=== PATIENT | male | born 1950 | race Caucasian/White ===

== ENCOUNTER 2022-05-22 17:25 | Emergency (ER) | payer OTHER, MEDICARE ==
[2022-05-22] VITALS (8 sets, daily range): BP systolic 117–197; BP diastolic 61–151
[~2022-05-22] VITALS: Ht 175.3 cm; Wt 91.0 kg
[2022-05-22 18:23] LABS: BASO% 0.6 % (0-3); EOS% 2.9 % (0-8); IMMATURE GRANULOCYTES 0.2 % (0.0-5.0); LYMPH% 31.5 % (15-41); MEAN CELL VOLUME 91.8 fL CALC (80.0-100.0); MEAN CORPUSCULAR HGB 32.2 pG CALC (26.0-32.0); MEAN CORPUSCULAR HGB CONC 35.1 g/dL CAL (32.0-36.0); MONO% 11.2 % (2-13); NEUT# 5.05 thou/uL (1.82-7.42); NEUT% 53.6 % (42-76); RED BLOOD COUNT 4.5 mill/uL (4.70-6.10)
[2022-05-22 18:28] LABS: HEMATOCRIT 41.3 % (39.0-50.0); HEMOGLOBIN 14.5 g/dl (14.0-18.0)
[2022-05-22 18:41] LABS: ALKALINE PHOSPHATASE 69 u/l (38-126); BILIRUBIN, TOTAL 0.7 mg/dL (0.0-1.4); BUN 8 mg/dL (8-23); BUN/CREATININE RATIO 8 (12-20 (CALC)); CHLORIDE 88 mmol/l (95-108); GFR FOR AFR.AMER. > 60 ML/MIN (>=60 (CALC)); GFR OTHER RACES > 60 ML/MIN (>=60 (CALC)); SGOT/AST 96 u/l (19-48); SODIUM 128 mmol/l (137-146); TOTAL PROTEIN 8.1 g/dL (6.3-8.2)
[2022-05-22 18:42] LABS: ALBUMIN 4.7 g/dL (3.2-5.0); ANION GAP 15 (6-22 (CALC)); CARBON DIOXIDE 29 mmol/l (22-30)
[2022-05-22 18:50] LABS: ETHYL ALCOHOL 215 mg/dl (0-30)
[2022-05-22 19:17] LABS: URINE BILIRUBIN - DIPSTICK NEGATIVE (NEGATIVE); URINE BLOOD DIPSTICK TRACE-INTACT (NEGATIVE); URINE COLOR YELLOW; URINE GLUCOSE - DIPSTICK >=1000 mg/dL (NEGATIVE); URINE KETONE TRACE mg/dL (NEGATIVE); URINE LEUK ESTERASE NEGATIVE (NEGATIVE); URINE PROTEIN - DIPSTICK 100 mg/dL (NEG-TRACE); URINE UROBILINOGEN - DIPSTICK 0.2 E.U./dL (0.2)
[2022-05-22 19:23] LABS: URINE NITRITE - DIPSTICK NEGATIVE (Negative); URINE RBC 0-2 RBC/hpf (0-5); URINE WBC 0-2 WBC/hpf (0-5)
== END 2022-05-22 21:54 | disposition home or self-care (01) | DRG 897 ==
LOC: ED 17:25
PROVIDERS: Nurse Practitioner
DX: F10.129 Alcohol abuse with intoxication, unspecified (principal); Y90.7 Blood alcohol level of 200-239 mg/100 ml; W01.0XXA Fall on same level from slipping, tripping and stumbling without subsequent striking against object, initial encounter; I10 Essential (primary) hypertension; E11.9 Type 2 diabetes mellitus without complications; Z79.84 Long term (current) use of oral hypoglycemic drugs

== ENCOUNTER 2022-06-24 11:27 | Observation (INO) | payer OTHER, MEDICARE ==
[~2022-06-24] VITALS: Ht 175.3 cm; Wt 86.6 kg
[2022-06-24] VITALS (22 sets, daily range): BP systolic 75–135; BP diastolic 41–65
[2022-06-24 12:00] LABS: BASO% 0.5 % (0-3); EOS% 1.7 % (0-8); HEMATOCRIT 38.3 % (39.0-50.0); IMMATURE GRANULOCYTES 0.4 % (0.0-5.0); LYMPH% 17.1 % (15-41); MEAN CELL VOLUME 94.6 fL CALC (80.0-100.0); MEAN CORPUSCULAR HGB 30.9 pG CALC (26.0-32.0); MEAN CORPUSCULAR HGB CONC 32.6 g/dL CAL (32.0-36.0); NEUT# 7.11 thou/uL (1.82-7.42); NEUT% 67.3 % (42-76); RED BLOOD COUNT 4.05 mill/uL (4.70-6.10); RED CELL DISTRI WIDTH 11.7 % (11.5-15.5)
[2022-06-24 12:13] LABS: HEMOGLOBIN 12.5 g/dl (14.0-18.0)
[2022-06-24 12:26] LABS: BILIRUBIN, TOTAL 0.8 mg/dL (0.0-1.4); CREATININE 1.8 mg/dL (0.7-1.3); POTASSIUM 4.6 mmol/l (3.5-5.1); TOTAL PROTEIN 7.6 g/dL (6.3-8.2)
[2022-06-24 12:28] LABS: INTERNATIONAL NORMALIZED RATIO 1.2 RATIO (0.7-1.3); PROTHROMBIN TIME 12.3 SECONDS (9.0-12.5)
[2022-06-24] MEDS ORDERED: CORDARONE/200 MG/TAB PO (15:22)
[2022-06-24] MEDS ORDERED: ASPIRIN81 MG PO (15:23)
[2022-06-24] MEDS ORDERED: CETIRIZINE10 MG PO (15:24)
[2022-06-24] MEDS ORDERED: VITAMIN D325 MCG PO (15:28)
[2022-06-24] MEDS ORDERED: ESCITALOPRAM OX10 MG PO (15:33)
[2022-06-24] MEDS ORDERED: CYMBALTA30 MG PO (15:34)
[2022-06-24] MEDS ORDERED: FOLIC ACID1 MG PO (15:34)
[2022-06-24] MEDS ORDERED: GABAPENTIN100 MG PO (15:36)
[2022-06-24] MEDS ORDERED: LANTUS100 UNIT SC ×2 (15:39→15:41)
[2022-06-24] MEDS ORDERED: LOSARTAN POTASS50 MG PO (15:43)
[2022-06-24] MEDS ORDERED: MAGOX 400400 MG PO (15:45)
[2022-06-24] MEDS ORDERED: MULT VITAMIN PO (15:49)
[2022-06-24] MEDS ORDERED: INDERAL10 M1 PO (15:53)
[2022-06-24] MEDS ORDERED: ROSUVASTATIN CA10 MG PO (15:56)
[2022-06-24] MEDS ORDERED: PRADAXA150 M1 PO (15:59)
[2022-06-25] VITALS (11 sets, daily range): BP systolic 88–174; BP diastolic 42–52
[2022-06-25 09:15] LABS: CREATININE 1.4 mg/dL (0.7-1.3); POTASSIUM 4.6 mmol/l (3.5-5.1)
[2022-06-25 09:52] LABS: BASO% 0.4 % (0-3); EOS% 3.8 % (0-8); HEMATOCRIT 36.4 % (39.0-50.0); HEMOGLOBIN 11.9 g/dl (14.0-18.0); IMMATURE GRANULOCYTES 0.1 % (0.0-5.0); LYMPH% 24.5 % (15-41); MEAN CELL VOLUME 95.5 fL CALC (80.0-100.0); MEAN CORPUSCULAR HGB 31.2 pG CALC (26.0-32.0); MEAN CORPUSCULAR HGB CONC 32.7 g/dL CAL (32.0-36.0); MONO% 11.3 % (2-13); NEUT# 4.09 thou/uL (1.82-7.42); NEUT% 59.9 % (42-76); RED BLOOD COUNT 3.81 mill/uL (4.70-6.10); RED CELL DISTRI WIDTH 11.7 % (11.5-15.5)
[2022-06-26 00:35] VITALS: BP 133/52
[2022-06-26 04:19] VITALS: BP 149/46
[2022-06-26 06:31] LABS: BASO% 0.7 % (0-3); EOS% 4.6 % (0-8); HEMATOCRIT 36.2 % (39.0-50.0); HEMOGLOBIN 12.3 g/dl (14.0-18.0); LYMPH% 26.9 % (15-41); MEAN CELL VOLUME 93.5 fL CALC (80.0-100.0); MEAN CORPUSCULAR HGB 31.8 pG CALC (26.0-32.0); MONO% 10.8 % (2-13); NEUT# 4.23 thou/uL (1.82-7.42); RED BLOOD COUNT 3.87 mill/uL (4.70-6.10); RED CELL DISTRI WIDTH 11.5 % (11.5-15.5)
[2022-06-26 06:33] LABS: ALBUMIN 3.8 g/dL (3.2-5.0); CREATININE 1.4 mg/dL (0.7-1.3); POTASSIUM 3.8 mmol/l (3.5-5.1); TOTAL PROTEIN 7.2 g/dL (6.3-8.2)
[2022-06-26 06:34] LABS: BILIRUBIN, TOTAL 0.3 mg/dL (0.0-1.4)
[2022-06-26 06:51] VITALS: BP 146/49
[2022-06-26 10:00] VITALS: BP 142/60
[2022-06-26 10:03] VITALS: BP 113/55
[2022-06-26 10:06] VITALS: BP 106/40
[2022-06-26] MEDS ORDERED: IPRATROPIUM BR0.03 % (13:15)
== END 2022-06-26 15:54 | disposition home or self-care (01) | DRG 312 ==
LOC: ED 11:27 → ED-I 13:17 → ED 13:38 → MS2 13:39
PROVIDERS: Family Medicine; Internal Medicine; Nurse Practitioner Family; ADMIT Internal Medicine; ATTEND Internal Medicine
PROC: 05HM33Z Insertion of Infusion Device into Right Internal Jugular Vein, Percutaneous Approach (ICD-10-PCS; principal; 2022-06-24)
DX: I95.1 Orthostatic hypotension (principal); K92.1 Melena; E11.51 Type 2 diabetes mellitus with diabetic peripheral angiopathy without gangrene; I10 Essential (primary) hypertension; F10.10 Alcohol abuse, uncomplicated; Z95.820 Peripheral vascular angioplasty status with implants and grafts; Z79.4 Long term (current) use of insulin; Z87.891 Personal history of nicotine dependence; Z20.822 Contact with and (suspected) exposure to COVID-19
CPT/HCPCS: S0164

== ENCOUNTER 2022-07-21 09:48 | Emergency (ER) | payer OTHER, MEDICARE ==
[~2022-07-21] VITALS: Ht 175.3 cm; Wt 90.0 kg
[2022-07-21] VITALS (12 sets, daily range): BP systolic 120–174; BP diastolic 57–86
[~2022-07-21 09:48] MED LIST: ASPIRIN81 MG PO; CETIRIZINE10 MG PO; CORDARONE/200 MG/TAB PO; CYMBALTA30 MG PO; ESCITALOPRAM OX10 MG PO; FOLIC ACID1 MG PO; GABAPENTIN100 MG PO; INDERAL10 M1 PO; IPRATROPIUM BR0.03 %; LANTUS100 UNIT SC; LOSARTAN POTASS50 MG PO; MAGOX 400400 MG PO; MULT VITAMIN PO; PRADAXA150 M1 PO; ROSUVASTATIN CA10 MG PO; VITAMIN D325 MCG PO
[2022-07-21 11:25] LABS: BASO% 0.4 % (0-3); EOS% 0.9 % (0-8); HEMATOCRIT 38.8 % (39.0-50.0); HEMOGLOBIN 12.3 g/dl (14.0-18.0); IMMATURE GRANULOCYTES 0.1 % (0.0-5.0); LYMPH% 18.9 % (15-41); MEAN CELL VOLUME 92.8 fL CALC (80.0-100.0); MEAN CORPUSCULAR HGB 29.4 pG CALC (26.0-32.0); MEAN CORPUSCULAR HGB CONC 31.7 g/dL CAL (32.0-36.0); MONO% 7.7 % (2-13); NEUT# 5.59 thou/uL (1.82-7.42); RED BLOOD COUNT 4.18 mill/uL (4.70-6.10); RED CELL DISTRI WIDTH 11.7 % (11.5-15.5)
[2022-07-21 11:33] LABS: ALBUMIN 4.2 g/dL (3.2-5.0); ALKALINE PHOSPHATASE 91 u/l (38-126); ANION GAP 11 (6-22 (CALC)); BUN 18 mg/dL (8-23); BUN/CREATININE RATIO 14 (12-20 (CALC)); CARBON DIOXIDE 26 mmol/l (22-30); CHLORIDE 100 mmol/l (95-108); CREATININE 1.3 mg/dL (0.7-1.3); GFR FOR AFR.AMER. > 60 ML/MIN (>=60 (CALC)); GFR OTHER RACES 54 ML/MIN (>=60 (CALC)); POTASSIUM 4.4 mmol/l (3.5-5.1); SGOT/AST 46 u/l (19-48); SODIUM 133 mmol/l (137-146); TOTAL PROTEIN 7.6 g/dL (6.3-8.2)
[2022-07-21 11:45] LABS: BILIRUBIN, TOTAL 0.6 mg/dL (0.2-1.3)
== END 2022-07-21 12:22 | disposition home or self-care (01) | DRG 204 ==
LOC: ED 09:48
PROVIDERS: Family Medicine
DX: R07.81 Pleurodynia (principal); I10 Essential (primary) hypertension; Z85.118 Personal history of other malignant neoplasm of bronchus and lung; E10.40 Type 1 diabetes mellitus with diabetic neuropathy, unspecified; Z79.4 Long term (current) use of insulin; I48.91 Unspecified atrial fibrillation; Z95.5 Presence of coronary angioplasty implant and graft; F41.8 Other specified anxiety disorders

== ENCOUNTER 2022-11-14 09:53 | Emergency (ER) | payer OTHER, MEDICARE ==
[~2022-11-14] VITALS: Ht 175.3 cm; Wt 88.0 kg
[2022-11-14] MEDS ORDERED: PAXLOVID PO (11:38)
[2022-11-14 12:00] VITALS: BP 171/81
== END 2022-11-14 12:01 | disposition home or self-care (01) | DRG 179 ==
LOC: ED 09:53
DX: U07.1 COVID-19 (principal); R53.83 Other fatigue; R52 Pain, unspecified; R68.83 Chills (without fever); R05.9 Cough, unspecified; I10 Essential (primary) hypertension; I48.91 Unspecified atrial fibrillation; F41.9 Anxiety disorder, unspecified; F32.A Depression, unspecified; E11.40 Type 2 diabetes mellitus with diabetic neuropathy, unspecified; J44.9 Chronic obstructive pulmonary disease, unspecified; Z79.4 Long term (current) use of insulin

== ENCOUNTER 2023-06-01 10:40 | Emergency (ER) | payer OTHER, MEDICARE ==
[~2023-06-01] VITALS: Ht 175.3 cm; Wt 91.0 kg
[~2023-06-01 10:40] MED LIST changes: +PAXLOVID PO
[2023-06-01 10:49] VITALS: BP 169/72
[2023-06-01 11:40] LABS: BASO% 0.5 % (0-3); EOS% 1.5 % (0-8); HEMATOCRIT 41.5 % (39.0-50.0); HEMOGLOBIN 13.8 g/dl (14.0-18.0); IMMATURE GRANULOCYTES 0.1 % (0.0-5.0); LYMPH% 15.1 % (15-41); MEAN CELL VOLUME 91.6 fL CALC (80.0-100.0); MEAN CORPUSCULAR HGB 30.5 pG CALC (26.0-32.0); MEAN CORPUSCULAR HGB CONC 33.3 g/dL CAL (32.0-36.0); MONO% 14.5 % (2-13); NEUT# 6.69 thou/uL (1.82-7.42); NEUT% 68.3 % (42-76); RED BLOOD COUNT 4.53 mill/uL (4.70-6.10); RED CELL DISTRI WIDTH 12.2 % (11.5-15.5)
[2023-06-01 11:58] LABS: CREATININE 1.4 mg/dL (0.7-1.3); POTASSIUM 4.5 mmol/l (3.5-5.1)
[2023-06-01] MEDS ORDERED: TAM75CAP PO ×2 (13:32→14:21)
[2023-06-01] MEDS ORDERED: ZITHROMAX250 MG PO ×2 (13:32→14:21)
[2023-06-01 13:33] VITALS: BP 169/72
== END 2023-06-01 13:41 | disposition home or self-care (01) | DRG 195 ==
LOC: ED 10:40
PROVIDERS: Emergency Medicine
DX: J10.1 Influenza due to other identified influenza virus with other respiratory manifestations (principal)